=== PATIENT | male | born 1965 | race Caucasian/White ===

== ENCOUNTER 2019-02-03 16:56 | Emergency (ER) | payer SELFPAY ==
[~2019-02-03] VITALS: Ht 185.4 cm; Wt 86.2 kg
[2019-02-03] MEDS ORDERED: IV NORMAL SALINE 1000ML BAG 1,000 ML IV ONE (17:15)
--- NOTE | 2019-02-03 17:18 | PHYS DOC ---
Past Medical History Past Medical History: Hypertension (TIMOTHY QUEZADA APRN) Past Surgical History: No Surgical History (TIMOTHY QUEZADA APRN) Alcohol Use: None Drug Use: None (TIMOTHY QUEZADA APRN) Adult General Chief Complaint Chief Complaint: NAUSEA/VOMITING/DIARRHA HPI HPI 53-year-old male presents to ER via EMS with complaints of sudden onset of nausea and vomiting and generalized fatigue which started approximately 30 minutes prior to arrival to ER. Patient reports he had been working in an attic doing insulation states he had mask on no concerns of respiratory issues. Patient states he was driving home when symptoms suddenly started. He reports he has had minimal fluid intake over the past couple of days denies being a smoker, alcohol intake, or illicit drug use. Patient states he also had minimal food intake today he last had something at noon which was able protein drink. Patient denied having chest pain, shortness of air, palpitations, or lethargy. Pt states he was started on blood pressure medication one month ago along with HCTZ. Patient states he is due for follow-up with his primary care physician. Pt denies any recent illness, travel, or exposure to illness w/family. (TIMOTHY QUEZADA APRN) Review of Systems Review of Systems Constitutional: Denies fever or chills. Reports felt shaky and fatigue with onset of symptoms. Patient reports that has improved. Eyes: Denies change in visual acuity, redness, or eye pain [] HENT: Denies nasal congestion or sore throat [] Respiratory: Denies cough or shortness of breath [] Cardiovascular: No additional information not addressed in HPI [] GI: Denies abdominal pain, bloody stools or diarrhea. Reports N/V or to arrival to ER. Patient states following treatments received by EMS his symptoms have si gnificantly improved with nausea subsiding. : Denies dysuria or hematuria [] Musculoskeletal: Denies back pain or joint pain [] Integument: Denies rash or skin lesions [] Neurologic: Denies headache, focal weakness or sensory changes [] Endocrine: Denies polyuria or polydipsia [] All other systems were reviewed and found to be within normal limits, except as documented in this note. (TIMOTHY QUEZADA APRN) Current Medications Current Medications Current Medications Medications (Trade) Dose Ordered Sig/Rachid Start Time Stop Time Status Last Admin Dose Admin Sodium Chloride 1,000 ml @ 1,000 mls/hr 1X ONCE 02/03/19 17:15 02/03/19 17:55 DC 02/03/19 17:17 1,000 MLS/HR (KAROLINE CABRAL MD) Allergies Allergies Allergies Coded Allergies Type Severity Reaction Last Updated Verified No Known Drug Allergies 02/03/19 No (KAROLINE CABRAL MD) Physical Exam Physical Exam Constitutional: Well developed, well nourished, no acute distress, non-toxic appearance. [] HENT: Normocephalic, atraumatic, bilateral external ears normal, oropharynx moist, no oral exudates, nose normal. [] Eyes: PERRLA, EOMI, conjunctiva normal, no discharge. [] Neck: Normal range of motion, no tenderness, supple, no stridor. [] Cardiovascular:Heart rate regular rhythm, no murmur [] Lungs & Thorax: Bilateral breath sounds clear to auscultation [] Abdomen: Bowel sounds normal, soft, no tenderness, no masses, no pulsatile masses. [] Skin: Warm, dry, no erythema, no rash. [] Back: No tenderness, no CVA tenderness. [] Extremities: No tenderness, no cyanosis, no clubbing, ROM intact, no edema. [] Neurologic: Alert and oriented X 3, normal motor function, normal sensory function, no focal deficits noted. [] Psychologic: Affect normal, judgement normal, mood normal. [] (TIMOTHY QUEZADA APRN) Current Patient Data Vital Signs Vital Signs Date Time Temp Pulse Resp B/P (MAP) Pulse Ox O2 Delivery O2 Flow Rate FiO2 02/03/19 17:48 102 16 137/80 (99) 99 Room Air 02/03/19 16:57 98.4 98.4 (KAROLINE CABRAL MD) EKG EKG [] (TIMOTHY QUEZADA APRN) Radiology/Procedures Radiology/Procedures [] (TIMOTHY QUEZADA APRN) Course & Med Decision Making Course & Med Decision Making Pertinent Labs and Imaging studies reviewed. (See chart for details) On initial discussion had discussed obtaining EKG and labs for evaluation. Patient preferred no test as his symptoms had significantly improved. Patient verbalized understanding of benefits of tests however is not wanting to have the EKG or blood tests done while in the ER. Patient is denying any chest pain, shortness of air, or abdominal pain. Patient states following the IV Zofran his nausea has subsided and he is requesting something to eat and drink. Vital signs are stable. Discussed patient's symptoms as well as new blood pressure medicine he had just started within the past 1 month along with HCTZ. Discussed checking renal function and again patient verbalized understanding on benefits of tests however reports he had been feeling fine prior to this sudden onset so not sure if the protein drink he had for lunch as well as working in the heat just caused the sudden onset of symptoms but with improved symptoms he is still not wanting to have any tests. Patient states he would follow-up with his primary care physician for reevaluation and labs if needed. Pt was given IV fluids and provided with PO drinks/snacks- patient reports he is feeling much better denying any symptoms. Patient requested discharge as his symptoms have subsided. Discussed plans for him to follow up with his primary care physician. Patient encouraged to increase fluid intake. Discussed possible heat related illness and dehydration as patient had been working outside and reported minimal fluid intake. At time of discharge discussion patient was in no visible distress denying any chest pain or shortness of air. Education provided on signs and symptoms to return to ER. Discharge instructions were discussed. Patient to follow-up with primary care physician if symptoms persist or with any concerns. (TIMOTHY QUEZADA APRN) Course & Med Decision Making This patient was seen by an THE[facility]. I did not see or treat the patient unless otherwise specified. (KAROLINE CABRAL MD) Dragon Disclaimer Dragon Disclaimer This electronic medical record was generated, in whole or in part, using a voice recognition dictation system. (TIMOTHY QUEZADA APRN) Departure Departure Impression: Primary Impression: Nausea & vomiting Disposition: 01 HOME, SELF-CARE Condition: STABLE Patient Instructions: Dehydration, Adult, Heat-Related Illness, Nausea and Vomiting Additional Instructions: You are being provided with information on heat related illness and dehydration. This cannot fully be evaluated as she preferred not to have any blood tests done while in the ER. Since for educational purposes and to provide you with signs and symptoms that would need reevaluation and further care. Follow-up with your primary care physician in 3-5 days for reevaluation and to discuss your ER visit. Drink plenty of fluids and eat well-balanced meals daily. TIMOTHY QUEZADA APRN February 03, 2019 17:18 KAROLINE CABRAL MD February 04, 2019 14:00
[2019-02-03 17:48] VITALS: BP 137/80
== END 2019-02-03 17:55 | disposition home or self-care (01) ==
LOC: ER 16:56
DX: R11.2 Nausea with vomiting, unspecified (principal); R53.83 Other fatigue; I10 Essential (primary) hypertension
CPT/HCPCS: 96360; 99284; J7030